=== PATIENT | female | born 1960 | race Hispanic/Latino ===

== ENCOUNTER 2016-12-29 08:33 | Emergency (ER) | payer MEDICAID, OTHER ==
[2016-12-29 08:42] VITALS: BP 110/62; PULSE 74; RESP 20; TEMP 98.3; O2SAT 99; BMI 19.6
--- NOTE | 2016-12-29 09:06 | ED PDOC ---
Lower Extremity Pain/Injury Time Seen by Provider: 12/29/16 08:45 Chief Complaint (Nursing): Lower Extremity Problem/Injury Chief Complaint (Provider): Right Ankle Injury History Per: Patient History/Exam Limitations: no limitations Onset/Duration Of Symptoms: Days (x7) Current Symptoms Are (Timing): Still Present Additional Complaint(s): Donavan Cervantes is a 56 year old female with a past medical history of thyroid disease and a past surgical history of a tonsillectomy and a metal plate placement in her right wrist presenting to the ED for an evaluation of a right ankle injury occurring 7 days prior to arrival. The patient states she tripped on a pothole while walking, causing swelling to her right ankle. Immediately she visited an urgent care clinic where she was seen by a physician. The physician told the patient to rest the right foot and placed a splint on the injured area. The patient reports icing her right ankle and elevating it while resting for 5 days following her visit to the urgent care clinic. She presents to the ED today for a reevaluation of her right ankle injury. The patient reports pain to her right ankle. PMD: None Provided Past Medical History Reviewed: Historical Data, Nursing Documentation, Vital Signs Vital Signs: Last Vital Signs Temp 98.3 F 12/29/16 08:41 Pulse 74 12/29/16 08:41 Resp 20 12/29/16 08:41 BP 110/62 12/29/16 08:41 Pulse Ox 99 12/29/16 08:41 - Medical History PMH: Hypothyroidism - Surgical History Surgical History: Tonsillectomy Other surgeries: metal plate placement in right wrist - Family History Family History: States: Unknown Family Hx - Social History Current smoker - smoking cessation education provided: Yes Alcohol: Social Drugs: Cannabis - Allergies Allergies/Adverse Reactions: Allergies Allergy/AdvReac Type Severity Reaction Status Date / Time Penicillins Allergy RASH Verified 12/29/16 08:50 Review of Systems Musculoskeletal: Positive for: Foot Pain (right ankle) Physical Exam - Reviewed Nursing Documentation Reviewed: Yes Vital Signs Reviewed: Yes - Physical Exam Appears: Positive for: Non-toxic, No Acute Distress Head Exam: Positive for: ATRAUMATIC, NORMOCEPHALIC Eye Exam: Positive for: Normal appearance, EOMI, PERRL Neck: Positive for: Normal, Supple Cardiovascular/Chest: Positive for: Regular Rate, Rhythm, Chest Non Tender Respiratory: Positive for: Normal Breath Sounds. Negative for: Respiratory Distress Extremity: Positive for: Normal ROM (normal sensation to right toes), Other ( posterior splint wrap placed on right ankle). Negative for: Swelling (to right ankle) Neurologic/Psych: Positive for: Alert, Oriented (x3). Negative for: Motor/ Sensory Deficits - ECG O2 Sat by Pulse Oximetry: 99 (RA) Pulse Ox Interpretation: Normal - Radiology X-Ray: Interpreted by Me, Viewed By Me X-Ray Interpretation: No Acute Disease Medical Decision Making Medical Decision Making: Time: 08:45 Impression: Right Ankle Injury Plan: * [RAD] Ankle Right 3 Views Routine * [RAD] Foot Right 3 Views Routine * Reevaluation Scribe Attestation: Documented by Xiomy Gandhi, acting as a scribe for Rebecca Cr MD. Provider Scribe Attestation: All medical record entries made by the Scribe were at my direction and personally dictated by me. I have reviewed the chart and agree that the record accurately reflects my personal performance of the history, physical exam, medical decision making, and the department course for this patient. I have also personally directed, reviewed, and agree with the discharge instructions and disposition. 11.00 seen by podiatry. new Posterior splint. followup in [facility] podiatry clinic Disposition - Clinical Impression Clinical Impression: Ankle injury - Patient ED Disposition Is Patient to be Admitted: No Doctor Will See Patient In The: Office Counseled Patient/Family Regarding: Diagnosis, Need For Followup - Disposition Referrals: Podiatry Clinic [Outside] Disposition: Routine/Home Disposition Time: 11:15 Condition: STABLE Additional Instructions: Followup with Dr. Chandler at the [facility]. You may also go to [facility] Instructions: Ankle Sprain (ED), Ankle Exercises (GEN) Forms: [employer] ([employer]) - POA Present On Arrival: Falls Or Trauma
--- NOTE | 2016-12-29 14:14 | RAD ---
PROCEDURE: Right Ankle Radiographs. HISTORY: injury one week ago COMPARISON: None FINDINGS: BONES: No acute fracture identified. JOINTS: Normal. No osteoarthritis. Ankle mortise maintained. Talar dome intact SOFT TISSUES: Lateral soft tissue swelling without apparent distal fibular abnormality. OTHER FINDINGS: None. IMPRESSION: No acute findings related to/accounting for the clinical presentation. Limitations of the current study: Detail obscured by overlying fiberglass cast. This is particularly problematic with respect to the distal fibula. Please note: No preliminary report/ innterpretation of this examination provided by emergency department personnel.
--- NOTE | 2016-12-29 14:16 | RAD ---
PROCEDURE: Right Foot Radiographs. HISTORY: injury one week ago COMPARISON: None. FINDINGS: BONES: No acute fractures identified. Limitations of the current study: Detail obscured by overlying fiberglass cast. JOINTS: Normal. SOFT TISSUES: Normal. OTHER FINDINGS: None. IMPRESSION: No acute findings related to/accounting for the clinical presentation. Limitations of the current study: Detail obscured by overlying fiberglass cast.
--- NOTE | 2016-12-29 19:07 | CP.PCM.CON ---
History of Present Illness - History of Present Illness History of Present Illness: Podiatry Consult Note - Dr. Casillas 56 year old female patient PMHx hypothyroidism seen in ED concerning right ankle injury. Patient states approximately 2 weeks ago she was fell into a pothole while walking around in [facility]. She did not seek treatment until 3 days later, when she went to an urgent care clinic and her right leg was put into a splint. Patient states XR were never taken of her right ankle, so she presented to [facility] ED for reevaluation. Patient states she has been icing and elevating her RLE, which she states has decreased the swelling. Patient states she takes Excedrin for migraines, which has also provided relief to her right ankle pain. Patient reports mild discomfort to her right ankle. Patient denies N/V/F/D/C/SOB /calf pain. Offers no other pedal complaints at this time. PMH: hypothyroidism PSH: ORIF right wrist, tonsillectomy Meds: see MAR FH: non-contributory SH: occasional ETOH, admits to tobacco use, admits to regular marijuana use All: Penicillins - rash Review of Systems - Review of Systems All systems: reviewed and no additional remarkable complaints except (as per HPI ) Past Patient History - Past Social History Alcohol: Social Drugs: Cannabis - ENDOCRINE/METABOLIC Hx Hypothyroidism: Yes - PSYCHIATRIC Hx Substance Use: Yes - SURGICAL HISTORY Hx Tonsillectomy: Yes Meds Allergies/Adverse Reactions: Allergies Allergy/AdvReac Type Severity Reaction Status Date / Time Penicillins Allergy RASH Verified 12/29/16 08:50 Physical Exam - Constitutional Appears: Well, Non-toxic, No Acute Distress - Extremities Exam Additional comments: RLE focused physical exam VASC: DP and PT pulses palpable 2/4. CFT <3 seconds to all digits x5. TG warm to warm. Non-pitting edema noted to lateral malleolus. No increase in warmth noted to lateral malleolus. Hair growth appreciated. NEURO: Protective and proprioceptive sensation intact. Light touch sensation intact. DERM: Ecchymosis noted distal to lateral malleolus and lateral aspect of calcaneus. No open lesions or excoriations noted. Skin appears well hydrated. ORTHO: No pain on palpation lateral malleolus. No pain on palpation ATFL, CFL, PTFL. No pain on palpation peroneal tendons. Negative anterior drawer. Negative talar tilt. Ankle joint ROM decreased with the knee extended but full with the knee flexed. No pain upon calcaneal squeeze. Muscle strength 5/5 for all dorsiflexors, plantarflexors, inverters, and everters without pain or crepitus noted. - Neurological Exam Neurological exam: Alert, Oriented x3 - Psychiatric Exam Psychiatric exam: Normal Affect, Normal Mood Results - Vital Signs Recent Vital Signs: Last Vital Signs Temp 98.3 F 12/29/16 08:41 Pulse 74 12/29/16 08:41 Resp 20 12/29/16 08:41 BP 110/62 12/29/16 08:41 Pulse Ox 99 12/29/16 11:55 Assessment & Plan - Assessment and Plan (Free Text) Assessment: 56 year old female with right ankle sprain 2/2 mechanical fall Plan: Patient seen and evaluated in ED Discussed with attending, Dr. Casillas RLE XR reviewed: Negative for acute fracture Posterior splint removed; patient re-casted Advised patient to remain NWB to RLE with the assistance of crutches Recommend Ibuprofen prn pain Advised patient to follow up with Dr. Casillas at [facility] podiatry clinic next week Sunday for follow up care Stable from podiatry standpoint Thank you for allowing podiatry to partake in the care of this patient - Date & Time Date: 12/29/16 Time: 11:00
== END 2016-12-29 12:16 | disposition home or self-care (01) ==
LOC: H.ER 08:33
DX: S93.401D Sprain of unspecified ligament of right ankle, subsequent encounter (principal); Z47.89 Encounter for other orthopedic aftercare